=== PATIENT | female | born 1955 | race Caucasian/White ===

== ENCOUNTER → 2016-10-15 | Outpatient (REF) | payer OTHER | LOC: M LAB REF 16:26 | PROVIDERS: ATTEND Podiatrist Foot & Ankle Surgery | DX: L03.115 Cellulitis of right lower limb (principal) ==

== ENCOUNTER → 2020-08-25 | Outpatient (CLI) | payer MEDICARE, BC ==
--- NOTE | 2020-08-25 12:14 | REPVR ---
PROCEDURE INFORMATION: Exam: MR Lumbar Spine Without Contrast Exam date and time: 08/25/2020 9:50 AM Age: 65 years old Clinical indication: Pain; Lumbago with sciatica; Right; Additional info: RT side lbp w/ RT side sciatica TECHNIQUE: Imaging protocol: Multiplanar magnetic resonance images of the lumbar spine without intravenous contrast. COMPARISON: No relevant prior studies available. FINDINGS: Vertebrae: There is 3 mm of grade 1 anterolisthesis of L4 with respect to L5. Normal vertebral body alignment is otherwise preserved. Vertebral body heights are within normal limits. There is severe intervertebral disc space loss at L5/S1. Spinal cord: Normal signal. No cord compression. L1-L2: No significant disc disease. No significant spinal canal stenosis. No neural foraminal stenosis. L2-L3: No significant disc disease. No significant spinal canal stenosis. No neural foraminal stenosis. L3-L4: No significant disc disease. No significant spinal canal stenosis. No neural foraminal stenosis. L4-L5: There is disc bulging/uncovering related to listhesis with a superimposed right foraminal extrusion and annular tear. There is severe facet and ligamentous hypertrophy. Fluid is noted within the facet joints. There is severe canal stenosis. There is severe right and [id number] left neural foraminal narrowing. L5-S1: There is a disc osteophyte complex. There is mild facet hypertrophy. There is moderate right and [id number] left neural foraminal narrowing. Soft tissues: Unremarkable. IMPRESSION: Degenerative disc disease and spondylosis as described. At L4/5, right foraminal disc extrusion results in potential compromise of the exiting right L4 nerve root. Electronically signed by: Alejandra Leos On 08/25/2020 12:14:13 PM
== END ==
LOC: M RAD 09:02
PROVIDERS: ATTEND Nurse Practitioner Family
DX: M54.41 Lumbago with sciatica, right side (principal)

== ENCOUNTER → 2023-08-07 | Outpatient (REF) | payer MEDICARE, OTHER | LOC: M LAB REF 17:27 | PROVIDERS: ATTEND Surgery | DX: D48.19 Other specified neoplasm of uncertain behavior of connective and other soft tissue (principal) ==

== ENCOUNTER → 2024-10-12 | Outpatient (CLI) | payer MEDICARE | LOC: M RAD 11:38 | PROVIDERS: ATTEND Podiatrist Foot & Ankle Surgery | DX: I73.89 Other specified peripheral vascular diseases (principal); I70.203 Unspecified atherosclerosis of native arteries of extremities, bilateral legs; Z95.820 Peripheral vascular angioplasty status with implants and grafts; T82.858A Stenosis of other vascular prosthetic devices, implants and grafts, initial encounter; Y83.1 Surgical operation with implant of artificial internal device as the cause of abnormal reaction of the patient, or of later complication, without mention of misadventure at the time of the procedure ==